=== PATIENT | female | born 1965 | race African-American/Black ===

== ENCOUNTER → 2016-07-29 | Outpatient (CLI) | payer OTHER ==
[~2016-07-29] MED LIST: AMBIEN PO; AMBIEN10 MG PO; ANXIETY PILL; B/P PILL; DIAZEPAM PO; HYDROCODON-ACE1 EAC5 PO; LIPITOR40 MG PO; LOSARTAN POTASS50 MG PO; NEURONTIN PO; NEURONTIN300 MG PO; SARAFEM20 MG PO; THYROID MEDICATION; TRAMADOL HCL50 M1 PO; WELLBUTRIN XL150 M1 PO; [UNRECOGNIZED DRUG - REMARK]; [UNRECOGNIZED DRUG - REMARK]
== END | disposition home or self-care (01) ==
LOC: CLAB 08:06
DX: E66.01 Morbid (severe) obesity due to excess calories (principal)
CPT/HCPCS: 36415; 84443; 86677; G0463

== ENCOUNTER → 2016-08-19 | Outpatient (CLI) | payer OTHER ==
--- NOTE | ~2016-08-19 | CR97 ---
[facility] A Service of [facility] RADIOLOGY TEXT RESULTS PATIENT: MICHELLE LO LOCATION: [facility] : 63 UNIT #: [id number] AGE: [address]: Stephen Amador MD SEX: F ORDER DR: [id number] [facility] [address] [place], [place] [address] [id number] O MR#: [id number] Acc #: [id number] NAME: MICHELLE LO. : 1965 SEX: F STUDY DATE/TIME: 08/19/2016 8:40 UNIT: [facility] ROOM: STUDY DESCRIPTION: CR Esophagram Attending Physician: Stephen Amador M.D. Ordering Physician: Stephen Amador M.D. Primary Care Physician: Bernadette Vicente MEDICAL IMAGING REPORT This report is preliminary unless electronic signature is present EXAM Barium esophagram INDICATION Morbid obesity. Preop for Lap-Band surgery. The fluoro time 0.4 minutes. 10 fluoroscopic images were taken. FINDINGS There is a tiny sliding hiatal hernia. Mild tertiary contractions. No evidence of stricture. IMPRESSION Tiny hiatal hernia. Dictated by... Antoine Rivera M.D. THIS IS AN ELECTRONICALLY VERIFIED REPORT Antoine Rivera M.D. at 08/19/2016 4:05 PM Krish TD: 08/19/2016 10:44 JOB #: [id number] MEDICAL IMAGING REPORT Page 1 of 1 COPY
--- NOTE | ~2016-08-19 | EKG ---
PATIENT: MICHELLE LO UNIT #: [id number] Ventricular Rate: 79 BPM Atrial Rate: 79 BPM P-R Interval: 160 ms QRS Duration: 86 ms Q-T Interval: 428 ms QTC Calculation(Bezet): 490 ms P [place]: 59 degrees Calculated R [place]: -7 degrees Calculated T [place]: 76 degrees Diagnosis Line: Normal sinus rhythm Diagnosis Line: Prolonged QT Diagnosis Line: Abnormal ECG Diagnosis Line: When compared with ECG of 31-OCT-2014 12:50, Diagnosis Line: Inverted T waves have replaced nonspecific T wave Diagnosis Line: abnormality in Lateral leads Diagnosis Line: Confirmed by HAI ENRIQUEZ MD ([id number]) on Diagnosis Line: 08/19/2016 11:23:44 PM INTERPRETING MD: SOL
--- NOTE | ~2016-08-19 | CR63 ---
[facility] A Service of [facility] RADIOLOGY TEXT RESULTS PATIENT: MICHELLE LO LOCATION: [facility] : 63 UNIT #: [id number] AGE: [address]: Stephen Amador MD SEX: F ORDER DR: [id number] [facility] [address] [place], [place] [address] [id number] O MR#: [id number] Acc #: [id number] NAME: MICHELLE LO. : 1965 SEX: F STUDY DATE/TIME: 08/19/2016 8:16 UNIT: [facility] ROOM: STUDY DESCRIPTION: CR Chest 2 View Attending Physician: Stephen Amador M.D. Ordering Physician: Stephen Amador M.D. Primary Care Physician: Bernadette Vicente MEDICAL IMAGING REPORT This report is preliminary unless electronic signature is present EXAM Chest, PA and lateral, 08/19/2016. HISTORY Morbid obesity. Preop laparoscopic gastric banding. Benign essential hypertension. Smoking history. FINDINGS PA and lateral examination of the chest upright shows a good expansion of the parenchyma with a normal distribution of the pulmonary vascularity. There is no indication of congestion, effusion, infiltrate, tumor, or nodular density. The pleural reflections and diaphragmatic contours are normal. The cardiac silhouette and mediastinal anatomy is within normal limits. IMPRESSION Normal chest. Dictated by... Dominguez Macdonald M.D. THIS IS AN ELECTRONICALLY VERIFIED REPORT Dominguez Macdonald M.D. at 08/19/2016 5:10 PM AMADOR/radha TD: 08/19/2016 10:06 JOB #: [id number] MEDICAL IMAGING REPORT Page 1 of 1 COPY
[2016-08-19 09:13] LABS: HEMATOCRIT 40.4 % (35.0-45.0); HEMOGLOBIN 12.9 gm/dL (12.0-16.0); MEAN CELL VOLUME 89.5 FL (83-96); MEAN CORPUSCULAR HEMOGLOBIN 28.6 PG (28-34); MEAN PLATELET VOLUME 7.7 FL (6.5-11.5); RED BLOOD COUNT 4.52 X10e (3.90-5.30); RED CELL DISTRIBUTION WIDTH 14.8 % (11.0-15.5); WHITE BLOOD COUNT 5.7 X10e3 (4.0-10.5)
[2016-08-19 10:03] LABS: BILIRUBIN,TOTAL 0.4 mg/dL (0.2-2.0); BUN/CREATININE RATIO 17.5; CALCIUM SERUM 9.2 mg/dL (8.4-10.2); CREATININE SERUM 0.8 mg/dL (0.6-1.4); POTASSIUM 4.3 mmol/L (3.5-5.1); PROTEIN TOTAL SERUM 7.5 g/dL (6.0-8.3)
== END | disposition home or self-care (01) ==
LOC: CRAD 07:50
PROVIDERS: Surgery
DX: Z01.818 Encounter for other preprocedural examination (principal); K44.9 Diaphragmatic hernia without obstruction or gangrene; E66.01 Morbid (severe) obesity due to excess calories
CPT/HCPCS: 36415; 71020; 74220; 80053; 80061; 84443; 85027; 93005

== ENCOUNTER → 2016-08-31 | Day surgery (SDC) | payer OTHER ==
--- NOTE | ~2016-08-31 | CR7 ---
[facility] A Service of [facility] RADIOLOGY TEXT RESULTS PATIENT: MICHELLE LO LOCATION: [facility] : 63 UNIT #: [id number] AGE: [address]: Stephen Amador MD SEX: F ORDER DR: [id number] [facility] [address] [place], [place] [address] [id number] O MR#: [id number] Acc #: [id number] NAME: MICHELLE LO : 1965 SEX: F STUDY DATE/TIME: 08/31/2016 10:30 UNIT: [facility] ROOM: STUDY DESCRIPTION: CR Abdomen Single AP View Attending Physician: Stephen Amador M.D. Ordering Physician: Stephen Amador M.D. Primary Care Physician: Bernadette Vicente [facility] IMAGING REPORT This report is preliminary unless electronic signature is present EXAM Abdomen, one view, 08/31/2016, 1030 hours. CLINICAL HISTORY Morbid obesity with abdominal pain, postop Lap-Band placement today. COMPARISON Preop esophagram, 08/19/2016. FINDINGS Single supine view of the abdomen excludes the right flank and the lower pelvis. There is a new Lap-Band present projecting over the left T11 costovertebral articulation oriented at 44 degrees. Radiopaque tubing extends inferiorly terminating in the midline over the L5 level. Bowel gas pattern is unremarkable. There is patchy parenchymal density at both medial lung bases, likely atelectasis. IMPRESSION 1. New Lap-Band overlies the left T11 costovertebral junction oriented at 44 degrees from vertical. Radiopaque tubing courses inferiorly to a port terminating over the L5 vertebral body. 2. Bowel gas pattern is unremarkable. 3. There is patchy medial bibasilar density at both lungs, likely atelectasis. Dictated by... Marilyn Mckenzie M.D. THIS IS AN ELECTRONICALLY VERIFIED REPORT Marilyn Mckenzie M.D. at 08/31/2016 2:28 PM SMM/tmw [facility] A Service of [facility] RADIOLOGY TEXT RESULTS PATIENT: MICHELLE LO LOCATION: [facility] ACC #: [id number] : [birth year] UNIT #: [id number] AGE: [address]: Stephen Amador MD SEX: F ORDER DR: TD: 08/31/2016 12:43 JOB #: [id number] MEDICAL IMAGING REPORT Page 1 of 1 COPY
--- NOTE | ~2016-08-31 | OR ---
Unit #: [id number] #: [id number] Patient: MICHELLE LO [id number] [address] [address] [id number] O MR#: [id number] NAME: MICHELLE LO ROOM: Date of Procedure: 08/31/2016 Admission Date: 08/31/2016 Surgeon: Stephen Amador M.D. : 1965 Attending Physician: Stephen Amador M.D. Primary Care Physician: Bernadette Vicente OPERATIVE REPORT PREOPERATIVE DIAGNOSIS Chronic morbid obesity, BMI 39. POSTOPERATIVE DIAGNOSES 1. Chronic morbid obesity, BMI 39. 2. Paraesophageal hiatal hernia. PROCEDURES PERFORMED 1. Laparoscopic adjustable gastric band. 2. Laparoscopic paraesophageal hiatal hernia repair. [employer] ENGINEER Keith Edwards M.D. ANESTHESIA General endotracheal anesthesia. ESTIMATED BLOOD LOSS Minimal. IV FLUIDS 800 crystalloid. COMPLICATIONS None. INDICATIONS FOR PROCEDURE The patient is a 50-year-old with chronic morbid obesity. DESCRIPTION OF PROCEDURE The patient was taken to the operating room and placed in supine position. General anesthesia was induced. The abdomen was prepped and draped. A 3-cm incision was then made left of the midline. A 10-mm Visiport was then placed intraabdominal under direct vision. The abdomen was insufflated to 15 mmHg with CO2. The patient was then placed in a steep reversed Trendelenburg. General inspection of the abdomen revealed what appeared to be a paraesophageal hernia. This was identified with a defect at the diaphragm using anterior palpation with the instrument. We then made a small incision in the subxiphoid region. A Sonu liver retractor was then placed intraabdominal and used to retract the left lobe of the liver upward to further expose the paraesophageal hernia and GE junction. I then placed a 5-mm port in the right upper quadrant, a 10-mm Unit #: [id number] #: [id number] Patient: MICHELLE LO port in the left upper quadrant, and another 5-mm port in the left lower quadrant. The stomach was retracted medial and downward. Upon retracting the stomach, we took down the paraesophageal ligament, exposing the right and left ariane at the paraesophageal hernia. Any hernia sac was reduced. We then repaired the paraesophageal hernia using interrupted #0 Ethibond sutures in a [id number] type fashion. This formed a snug repair to the anterior esophagus. We then retracted the stomach medially and further exposed the angle of His using Bovie electrocautery. The stomach was then retracted laterally. We then took down the hepatogastric ligament with Bovie electrocautery. This exposed the right ariane. Using blunt dissection, I created a retrogastric tunnel from this point to the angle of His. The band was then placed intraabdominal through the 10-mm port site. This was then brought through the retrogastric tunnel in a pars flaccida technique. The band was then closed anteriorly to form a 20-mL to 25-mL anterior gastric pouch. The fundus was then secured to the anterior pouch to prevent movement around the stomach using two interrupted #0 Ethibond sutures. A third suture was then used as a gathering stitch from the lesser curve to the anterior stomach, gathering and imbricating the remaining fundus of the stomach. The tubing was then brought out through the midline 10-mm port site. All ports and the Sonu liver retractor were removed under direct vision with no evidence of abdominal hemorrhage. A polypropylene mesh was then secured to the posterior face of the laparoscopic band port. This was secured using #0 Ethibond suture. This was then cut to shape. The port was then connected to the tubing and placed into a subcutaneous pocket just anterior to the rectus sheath. Its position was then confirmed. All tubing was then placed intraabdominal. The wounds were then closed with interrupted 4-0 Vicryl. The patient tolerated the procedure well and was sent to the recovery room in good condition. Dictated by... Peter Acosta/fabian TD: 08/31/2016 11:33 JOB #: [id number] OPERATIVE REPORT Page 1 of 1 X Stephen Amador MD X PROCEDURE OPERATIVE NOTE
== END | disposition home or self-care (01) ==
LOC: CSUR 06:17
DX: E66.01 Morbid (severe) obesity due to excess calories (principal); K44.9 Diaphragmatic hernia without obstruction or gangrene; I10 Essential (primary) hypertension; J44.9 Chronic obstructive pulmonary disease, unspecified; J45.909 Unspecified asthma, uncomplicated; G40.909 Epilepsy, unspecified, not intractable, without status epilepticus; E78.00 Pure hypercholesterolemia, unspecified; G47.30 Sleep apnea, unspecified; K21.9 Gastro-esophageal reflux disease without esophagitis; M81.0 Age-related osteoporosis without current pathological fracture; F17.210 Nicotine dependence, cigarettes, uncomplicated; F32.9 Major depressive disorder, single episode, unspecified; F41.9 Anxiety disorder, unspecified; Z68.39 Body mass index [BMI] 39.0-39.9, adult; Z72.4 Inappropriate diet and eating habits; Z87.19 Personal history of other diseases of the digestive system; Z87.442 Personal history of urinary calculi; Z85.05 Personal history of malignant neoplasm of liver; Z85.118 Personal history of other malignant neoplasm of bronchus and lung; Z86.73 Personal history of transient ischemic attack (TIA), and cerebral infarction without residual deficits; Z86.11 Personal history of tuberculosis; Z79.891 Long term (current) use of opiate analgesic; Z79.899 Other long term (current) drug therapy; Z90.710 Acquired absence of both cervix and uterus
CPT/HCPCS: 74000; C1781; J0330; J0690; J1100; J1650; J1885; J2250; J2405; J2710; J3010